=== PATIENT | female | born 1960 | race Caucasian/White ===

== ENCOUNTER 2018-06-27 22:20 | Emergency (ER) | payer SELFPAY ==
[~2018-06-27 22:20] MED LIST: Dexamethasone 20 MG/5 ML VIAL ONE; Lidocaine 1% PF 5 ML VIAL ONE; Ondansetron HCl/PF 4 MG/2 ML Vial ONE; PHENYLEPHRINE-NS 100 MCG/ML 10 ML SYRINGE ONE; PROPOFOL 200 MG/20 ML VIAL ONE; Succinylcholine Chloride 20 MG/ML 10 ml SYRINGE FS ONE
[2018-06-27 22:55] LABS: #Basophils 0.1 thou/uL (0.0-0.2); #Eosinphils 0.1 thou/uL (0.0-0.7); #Lymphocytes 2.2 thou/uL (1.20-3.40); #Monocytes 0.6 thou/uL (0.11-0.59); #Neutrophils 6.3 thou/uL (1.40-6.50); %Eosinophils 0.8 % (0.0-10.0); %Neutrophils 68.3 % (42.0-75.0); Hemoglobin 9.9 g/dL (12.0-16.0); Mean Corpuscular HGB CONC 33.8 g/dL (32.0-36.0); Mean Corpuscular Hemoglobin 32.9 pg (27.0-31.0); Mean Corpuscular Volume 97.5 fL (78.0-98.0); Mean Platelet Volume 9.4 fL (7.4-10.4); Platelet Count 235 thou/uL (130-400); RBC Distribution Width 11.6 % (11.5-14.5); Red Blood Cell (RBC) Count 3.01 mill/uL (4.20-5.40); White Blood Cell (WBC) Count 9.3 thou/uL (4.8-10.8)
[2018-06-27] MEDS ORDERED: CEFAZOLIN/Water 2 GM/20 ML SYRINGE SLOW IVP SCH (23:15)
[2018-06-28] MEDS ORDERED: Fentanyl 100 MCG/2 ML VIAL ONE ×4 (00:12→03:47)
[2018-06-28] MEDS ORDERED: Midazolam HCl 2 mg/2 ml Vial ONE (03:02)
--- NOTE | 2018-06-28 03:50 | OP ---
PREOPERATIVE DIAGNOSIS: Right breast hematoma. POSTOPERATIVE DIAGNOSES: Right breast hematoma and abdominoplasty hematoma. PROCEDURE: Evacuation of hematomas of the right breast and abdomen. PROCEDURE IN DETAIL: Following induction of adequate anesthesia, the patient was prepped and draped in the usual sterile fashion in the supine position. The patient had sudden swelling in her right br east through the evening of 06/27/2018. She was taken to the operating room for that. It was also n oted that she had a little bit more swelling than might be expected on the abdomen. The right mastop exy Johnson pattern was opened. Approximately 150-200 mL of blood clot was removed. The field was copi ously irrigated and inspected for meticulous hemostasis numerous times prior to reclosure of the inve rted T with 3-0 PDS suture and 3-0 Monocryl. A drain was placed prior to closure. The abdomen was inspected. There had been a small vertical midline left. This was opened. Small am ount of clot was aspirated. To be certain that nothing was being missed, the abdominoplasty incision was opened. Less than 20-30 mL of blood clot was identified, copiously irrigated out, washed and cl osed with 2-0 PDS suture and V-Loc suture for the Marcelle's fascia followed by 3-0 PDS and 3-0 Monocry l for the skin layer. Drains that were in place were left. Patient tolerated the procedure well.
[2018-06-28] MEDS ORDERED: HYDROcodone/Acetaminophen 5/325 mg Tablet ONE (04:20)
== END 2018-06-28 00:49 | disposition admitted as inpatient to this hospital (09) ==
LOC: ERS 22:20 → ER/OP 22:20
DX: N63.0 Unspecified lump in unspecified breast (principal); F41.9 Anxiety disorder, unspecified; G47.00 Insomnia, unspecified; Z85.828 Personal history of other malignant neoplasm of skin
CPT/HCPCS: 85025; 96374; 96375; J1100; J2001; J2250; J2270; J2405; J2704; J3010